=== PATIENT | female | born 1970 | race Two or more races ===

== ENCOUNTER 2023-03-08 09:17 | Outpatient (CLI) | payer OTHER | END 2023-03-08 09:26 | disposition home or self-care (01) | LOC: SONOGRAMA 09:17 | PROVIDERS: ATTEND Pathology Anatomic Pathology & Clinical Pathology | DX: D44.0 Neoplasm of uncertain behavior of thyroid gland (principal); D34 Benign neoplasm of thyroid gland; E04.9 Nontoxic goiter, unspecified; E07.9 Disorder of thyroid, unspecified ==

== ENCOUNTER 2023-05-13 15:18 | Outpatient (CLI) | payer OTHER | END 2023-05-13 15:24 | disposition home or self-care (01) | LOC: SONOGRAMA 15:18 | PROVIDERS: ATTEND Pathology Anatomic Pathology & Clinical Pathology | DX: D44.0 Neoplasm of uncertain behavior of thyroid gland (principal); E04.2 Nontoxic multinodular goiter ==

== ENCOUNTER 2024-08-25 10:23 | Outpatient (CLI) | payer OTHER | END 2024-08-25 10:36 | disposition home or self-care (01) | LOC: SONOGRAMA 10:23 | PROVIDERS: ATTEND Internal Medicine | DX: E04.2 Nontoxic multinodular goiter (principal) ==